=== PATIENT | male | born 2005 | race Caucasian/White ===

== ENCOUNTER 2023-09-18 16:00 | Emergency (ER) | payer OTHER, SELFPAY ==
[2023-09-18 16:05] VITALS: BP 117/76; PULSE 73; RESP 20; TEMP 37.4; O2SAT 97; BMI 22.5
--- NOTE | 2023-09-18 16:24 | ED.GENADULT ---
HPI - General Adult General Date Seen: 09/18/23 Chief complaint: Skin/Abscess/Foreign Body Stated complaint: Rash across body Time Seen by Provider: 09/18/23 16:12 Source: patient Mode of arrival: ambulatory Limitations: no limitations History of Present Illness HPI narrative: Patient is a 18-year-old [employer] student who presents for full-body hives. He says he woke up this morning with an itchy rash that looked him like hives. He has never had this before. He does not have any respiratory symptoms, no exposure to anything new that he is aware of, went out last night but just had some beer and a cheeseburger, nothing unusual. No new medications or products. No viral symptoms. He took 25 mg of Benadryl about an hour ago. Related Data Home Medications Medication Instructions Recorded Confirmed No Known Home Medications 09/18/23 09/18/23 Allergies Allergy/AdvReac Type Severity Reaction Status Date / Time No Known Drug Allergies Allergy Verified 09/18/23 16:05 Review of Systems Status of ROS: Reports: 6 or more systems reviewed and unremarkable except as noted in History and below PFSH [facility] Social History Smoking Status: Never smoker Do you use any of these nicotine containing products: None Second hand tobacco smoke exposure: Yes How often do you have a drink containing alcohol: 2-4 times a month How many standard drinks containing alcohol do you have on a typical day: 3 or 4 How often do you have six or more drinks on one occasion: Monthly AUDIT-C Alcohol total score: 5 Non-prescribed substance use: denies use service: No Exam Narrative: Exam Narrative: Vital signs as noted above. In general, an alert, well-appearing patient. Head: Normocephalic, atraumatic. Eyes: Pupils are equal reactive. Extraocular movements are full. Conjunctivae are normal. ENT: Mucous membranes are moist. Throat is normal. Neck: Supple without lymphadenopathy. Heart: Regular rate and rhythm. No murmur or rub. Lungs: Clear bilaterally. No increased work of breathing, crackles or wheezes. Neurologic: Patient is alert and oriented to person and place. Speech is fluent. Face is symmetric. Moves all extremities equally. Affect: Normal. Skin: Warm and dry. Well perfused. Diffuse hives. Const: Vital Signs, click to edit/add: Vital Signs - 24 hr 09/18/23 16:05 Temperature 99.3 F Pulse Rate [Pulse Oximeter] 73 Respiratory Rate 20 Blood Pressure [Ri ght Upper Arm] 117/76 Pulse Oximetry 97 Oxygen Delivery Me thod Room Air Documenting provider has reviewed patient's vital signs: yes Course Course ED Course: Will give him an additional 25 mg of Benadryl here, recommended antihistamines such as Benadryl 4 times daily or a nonsedating antihistamine twice a day for the next few days. Will add prednisone as well. If symptoms resolve does not necessarily need further follow-up but if he has persistence or recurrence would recommend primary care follow-up for consideration of allergy testing. In the unlikely event of new symptoms such as facial swelling or wheezing/difficulty breathing, return to the emergency department right away. Vital Signs Vital signs: Initial Vital Signs Temperature 99.3 F 09/18/23 16:05 Temperature Source Temporal Artery Scan 09/18/23 16:05 Pulse Rate 73 09/18/23 16:05 Pulse Rhythm Regular 09/18/23 16:05 Respiratory Rate 20 09/18/23 16:05 Blood Pressure 117/76 09/18/23 16:05 Blood Pressure Mean 89 09/18/23 16:05 Blood Pressure Position Sitting 09/18/23 16:05 Pulse Oximetry 97 09/18/23 16:05 Oxygen Delivery Method Room Air 09/18/23 16:05 Vital Signs Temperature 99.3 F 09/18/23 16:05 Pulse Rate 73 09/18/23 16:05 Respiratory Rate 20 09/18/23 16:05 Blood Pressure 117/76 09/18/23 16:05 Pulse Oximetry 97 09/18/23 16:05 Oxygen Delivery Method Room Air 09/18/23 16:05 Temperature 99.3 F 09/18/23 16:05 Pulse Rate 73 09/18/23 16:05 Respiratory Rate 20 09/18/23 16:05 Blood Pressure 117/76 09/18/23 16:05 Pulse Oximetry 97 09/18/23 16:05 Oxygen Delivery Method Room Air 09/18/23 16:05 Discharge Plan Discharge Prescriptions: No Action No Known Home Medications
[2023-09-18] MEDS: diphenhydrAMINE 25 MG CAPSULE PO (16:42)
== END 2023-09-18 16:43 | disposition home or self-care (01) ==
LOC: ED 16:40
PROVIDERS: Emergency Provider Emergency Medicine
DX: R21 Rash and other nonspecific skin eruption (principal)
CPT/HCPCS: 99283; 99284; A9270

== ENCOUNTER 2024-10-02 03:21 | Emergency (ER) | payer OTHER, SELFPAY ==
[2024-10-02 03:28] VITALS: BP 160/92; RESP 100; TEMP 37.1; O2SAT 98; BMI 22.5
--- NOTE | 2024-10-02 03:29 | ED_ITS ---
HPI - General Adult General Time Seen by Provider: 03: Date Seen: 10/02/24 Chief complaint: Sore Throat Stated complaint: Tonsillitis Time Seen by Provider: 10/02/24 03:29 Source: patient, RN notes reviewed and old records reviewed Mode of arrival: ambulatory Limitations: no limitations History of Present Illness HPI narrative: 19-year-old male who comes in today with sore throat. Patient noted sore throat for the last 4 days, did a telehealth visit was started on penicillin but is having worsening sore throat. Pain with swallowing, no difficulty breathing. Denies nausea vomiting, did have a fever couple of days ago. Related Data Home Medications ?Medication ?Instructions ?Recorded ?Confirmed No Known Home Medications 09/18/23 09/18/23 Allergies Allergy/AdvReac Type Severity Reaction Status Date / Time No Known Drug Allergies Allergy Verified 10/02/24 03:30 [facility] Social History Smoking Status: Never smoker Do you use any of these nicotine containing products: None Second hand tobacco smoke exposure: Yes How often do you have a drink containing alcohol: 2-4 times a month How many standard drinks containing alcohol do you have on a typical day: 3 or 4 How often do you have six or more drinks on one occasion: Monthly AUDIT-C Alcohol total score: 5 Non-prescribed substance use: denies use service: No Exam Narrative: Exam Narrative: General: Well-developed and well-nourished, no acute distress Head: Atraumatic and normocephalic Eyes: Pupils are equal reactive, extraocular motions intact, conjunctiva clear ENT: External nose and ears are normal, bilateral tonsillar erythema and prominence which is symmetric, bilateral tonsillar exudate Neck: No midline cervical tenderness, full spontaneous range of motion the neck, trachea midline, bilateral anterior cervical adenopathy Heart: Regular rate and rhythm no murmurs or thrills Lungs: Clear to auscultation bilaterally without wheezes or crackles Abdomen: Soft, nontender, nondistended with active bowel sounds Musculoskeletal: No tenderness, deformity, or edema Neurologic: Awake, alert, and oriented x3, no gross focal neurologic deficits, cranial nerves intact as tested Psych: Mood and affect are appropriate Skin: No rashes Const: Vital Signs, click to edit/add: Vital Signs - 24 hr 10/02/24 03:28 Temperature 98.8 F Respiratory Rate 100 H Blood Pressure [Le ft Upper Arm] 160/92 H Pulse Oximetry 98 Oxygen Delivery Me thod Room Air Course Course ED Course: Patient seen and examined, presents today with sore throat. Has been on penicillin for less than 48 hours with no improvement of symptoms. On exam here, patient is afebrile, bilateral tonsillar prominence with exudate and erythema but no asymmetry of the tonsils are soft palate suggest peritonsillar abscess. Bilateral anterior cervical adenopathy. We discussed that in addition to possible bacterial infection, infectious mononucleosis could present with a similar picture and obviously would not be amenable to antibiotic treatment. Also discussed the patient has only had symptoms couple of days, testing for mononucleosis could be negative. Patient will be changed from penicillin to Augmentin and will be started on prednisone as well. Follow-up with ENT this week. Consider CT scan in the neck but no evidence for peritonsillar abscess, no airway compromise. Vital Signs Vital signs: Initial Vital Signs Temperature 98.8 F 10/02/24 03:28 Temperature Source Temporal Artery Scan 10/02/24 03:28 Respiratory Rate 100 H 10/02/24 03:28 Blood Pressure 160/92 H 10/02/24 03:28 Blood Pressure Mean 114 H 10/02/24 03:28 Blood Pressure Position Sitting 10/02/24 03:28 Pulse Oximetry 98 10/02/24 03:28 Oxygen Delivery Method Room Air 10/02/24 03:28 Vital Signs Temperature 98.8 F 10/02/24 03:28 Respiratory Rate 100 H 10/02/24 03:28 Blood Pressure 160/92 H 10/02/24 03:28 Pulse Oximetry 98 10/02/24 03:28 Oxygen Delivery Method Room Air 10/02/24 03:28 Temperature 98.8 F 10/02/24 03:28 Respiratory Rate 100 H 10/02/24 03:28 Blood Pressure 160/92 H 10/02/24 03:28 Pulse Oximetry 98 10/02/24 03:28 Oxygen Delivery Method Room Air 10/02/24 03:28 Discharge Plan Discharge Clinical Impression: Exudative tonsillitis Patient Disposition: Home, Self-Care Condition: Stable Instructions: Tonsillitis (ED) Additional Instructions: Stop penicillin Start Augmentin and prednisone as prescribed Follow-up with Dr. Goldstein, ENT this week Prescriptions: No Action No Known Home Medications Follow Up/Referrals: Provider,Not a Local [Primary Care Provider] - Stand Alone Forms: [facility] Medical Info Instructions
--- OUTSIDE RECORDS SUMMARY | 2024-10-02 03:47 | XMS_ITS | Clinical Summary ---
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 Role Phone Pcp, No Primary Care Provider Unavailabl e Allergies No known active allergies Medications No known medications Active Problems No known active problems Family History Medical History Relation Name Comments No Known Problems Brother 1 No Known Problems Brother 2 Deep vein thrombosis Father No Known Problems Mother Relation Name Status Comments Brother 1 Alive Brother 2 Alive Father Alive Mother Alive Social History Tobacco Use Types Packs/Day Years Used Date Smoking Tobacco: Never Smokeless Tobacco: Never Tobacco Cessation:Counseling Given: Yes Alcohol Use Standard Drinks/Week Comments Yes 0 (1 standard drink = 0.6 oz pur e alcohol) monthly-couple drinks PHQ-2 Answer Date Recorded PHQ-2 TOTAL SCORE 0 02/10/2022 Social Connections Answer Date Recorded Frequency of Communication with Friends and Fami ly Not on file 02/10/2022 Sex and Gender Information Value Date Recorded Sex Assigned at Not on file Gender Identity Not on file Sexual Orientation Not on file Obstetrics History Last Filed Vital Signs Vital Sign Reading Time Taken Comments Blood Pressure 110/64 02/10/2022 2:53 PM CDT Pulse 60 02/10/2022 2:53 PM CDT Temperature - - Respiratory Rate - - Oxygen Saturation 95% 02/10/2022 2:53 PM CDT Inhaled Oxygen Concentration - - Weight 79.8 kg (176 lb) 02/10/2022 2:53 PM CDT Height 190.5 cm (6' 3) 02/10/2022 2:53 PM CDT Body Mass Index 22 02/10/2022 2:53 PM CDT Plan of Treatment Health Maintenance Due Date Last Done Comments Tdap 2014 HIV for age 15-65 2018 HPV series for age 9-26 (1 - Male 3-dose series) 2018 Hepatitis C screening for ag e 18-79 2021 BMI (ht and wt on same day) for age 18+ 02/10/2023 02/10/2022 Depression screening for age 12+ 02/10/2023 02/11/20 Tetanus booster 2023 COVID-19 vaccine series ( - season) 2024 Influenza for age 9-49 07/02/2024 Meningococcal series for age 11-21 Aged Out No longer eligible based on patient's age to complete this topic Pneumococcal series for age 6-64 Aged Out No longer eligible based on patient's age to complete this topic 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 PCP - General 02/10/22
[2024-10-02 04:01] LABS: Strep A DNA Probe* NOT DETECTED (Not Detectd)
[2024-10-02 04:14] LABS: PCR FLU A Negative PCR FLU A (Negative); PCR FLU B Negative PCR FLU B (Negative); PCR RSV Negative PCR RSV (Negative); SARS PCR* Negative SARS-CoV-2 (Negative)
== END 2024-10-02 03:57 | disposition home or self-care (01) ==
PROVIDERS: Emergency Provider Family Medicine
DX: J03.80 Acute tonsillitis due to other specified organisms (principal)
CPT/HCPCS: 87631; 87651; 99283; 99284